=== PATIENT | male | born 1980 | race Caucasian/White ===

== ENCOUNTER 2022-11-18 09:27 | Observation (INO) ==
--- NOTE | 2022-10-31 09:57 | History & Physical Report ---
Date of Service October 31, 2022 date of surgery: 11/18/22 Procedure: Right Knee unicompartment replacement Surgeon: Markell Arzate Assessment & Plan (1) Arthritis of right knee: Plan: Patient presented for preop evaluation prior to his right knee surgery at this point time is failed conservative measures including corticosteroid injections, viscosupplementation and oral anti-inflammatories without relief. Imaging reviewed which shows advanced generative changes of the medial compartment, further care was discussed with Dr. Arzate and he is like to proceed with surgical invention. Plan will be right knee medial compartment unicompartmental knee replacement. Placed on aspirin 81 mg twice a day for 1 month postop he otherwise has no other questions or concerns The risks and benefits have been discussed including, but not limited to, risk of infection, nerve injury, stiffness, loss of motion, failure to improve, etc. Reasonable outcomes and options of treatment were discussed. An explanation of appropriate alternatives to the procedure that may be advantageous were discussed and their risks and benefits, as well as the risks and benefits of not proceeding with treatment. I offered to answer any additional inquiries concerning the treatment involved. All the patient's questions were answered. The patient is agreeable, understanding of the treatment plan and alternatives, and wishes to proceed with the treatment plan. History of Present Illness Chief Complaint: Right knee pain Primary Care Provider: Geovany Hill MD Jone is a pleasant 42-year-old male who presented for preop evaluation prior to his right knee unicompartmental medial compartment knee replacement. He states he been pain in this knee for many years now which is gradually worsened, he has failed previous physical therapy, cortisone injections, viscosupplementation as well as anti-inflammatories. He states he did have previous meniscus surgery several years ago. At this point time is failed conservative measures and would like to proceed with surgical invention. X-rays and MRI showed DJD of the medial compartment otherwise well-maintained lateral compartment. Discussed further treatment options and like to proceed with surgical invention. Allergies Allergy/AdvReac Type Severity Reaction Status Date / Time levofloxacin [From Levaquin] Allergy Intermediate "felt Verified 10/29/22 15:52 extremely high" hydrocodone [From Vicodin] AdvReac Intermediate Joint Pain Verified 10/29/22 15:52 Home Medications Medication Instructions Recorded Confirmed Type No Known Home Medications 10/29/22 10/29/22 History Past Med/Surg History Medical History Depression GERD (gastroesophageal reflux disease) History of COVID-19 05/2021--mild symptoms, still having issues with smell PTSD (post-traumatic stress disorder) Tinnitus Surgical History H/O knee surgery x 3 on right knee History of arthroscopy of knee left History of wisdom tooth extraction Family History Father Myocardial infarction Other No family history of adverse response to anesthesia Social History Smoking Status: Current every day smoker Cigarettes Per Day: 1 pack a week (advised on policy); Second Hand Exposure: No; Do You Dip or Chew Tobacco: No; Tobacco Cessation Education Requested by Patient: No Hx Alcohol Use: Yes Hx Substance Use: No Preferred Language: [place] Communication Ability: Effective Laundry Tech Required: No Beliefs That Will Affect Care: None Current Living Situation: Significant Other Other Information That Helps Us Care for You: No Feels Safe at Home: Yes Safety Concerns: Feels Safe At This Time Assistive Devices: Glasses Review of Systems Review of Systems: All systems reviewed & are unremarkable except as noted in HPI & below Constitutional: no fever, no chills and no sweats Respiratory: no cough and no dyspnea Cardiovascular: no chest pain, no dyspnea and no orthopnea Gastrointestinal: no abdominal pain, no nausea and no vomiting Musculoskeletal: as per Subjective / HPI Physical Exam Physical Exam: HT: 5ft 7in WT: 102kg Constitutional: WD/WN, vitals as above no acute distress Respiratory: normal respiratory effort, lungs clear to auscultation no re spiratory distress, no labored breathing and does not use accessory muscles Cardiovascular: RRR, no murmur, no edema Gastrointestinal (Abdomen): normal bowel sounds, soft, nontender, no hepatosplenomegaly Musculoskeletal: Knee: + knee abnormal to inspection (Right Knee: ), + effusion (+1 effusion), + surgical incision (well healed portals), + limited ROM of knee (ROM 0/3/110), + knee ROM with crepitation, + joint line tenderness (medial joint line) and + Jil's sign positive; no deformity, no skin erythema, no ecchymosis, no valgus laxity, no varus laxity, anterior drawer test negative, Justo's sign negative and pivot shift test negative Results & Data Results & Data Diagnostic Findings X-rays and MRI reviewed which show moderate to severe DJD of the medial compartment with joint space narrowing osteophyte formation subchondral sclerosis. No acute findings noted well-maintained lateral compartment
--- NOTE | 2022-11-03 13:56 | Anesthesiology Consultation ---
Date of Service November 03, 2022 Assessment & Plan (1) Encounter for pre-operative examination: - awaiting PCP clearance. - Case discussed in detail with Dr. Angulo including reflux and dyspnea with exertion. He advised patient to have PCP pre-op evaluation and clearance prior to surgery. Optimization form completed. Pt and surgeon's office made aware. - Outpatient joint assessment: Patient is currently scheduled for inpatient pathway. Further assessment/determination is pending PCP clearance. Chart Review Chart Review: Pending: Refer to Additional Notes / Consult section and Patient seen in Pre Admission Testing Teaching & Discussion Pre-Anesthesia Teaching/Discussion Notes: Instructed NPO after midnight before surgery, except medications with 15 cc of water. Medication instructions provided according to the PAT guidelines. History Surgery Operation Date: 11/18/22 14:00 Proposed Procedures p Right Total Knee Arthroplasty Medial Comparment - Markell Arzate DO Height/Weight Height: 5 ft 7 in Weight: 102.058 kg Allergies Allergy/AdvReac Type Severity Reaction Status Date / Time hydrocodone [From Vicodin] AdvReac Intermediate Joint Pain Verified 10/29/22 15:52 levofloxacin [From Levaquin] AdvReac Intermediate "Extremely Verified 10/31/22 14:57 high" feeling percocet Allergy Intermediate nausea and Uncoded 11/03/22 14:02 vomiting Medications Home Medications Medication Instructions Recorded Confirmed Last Taken No Known Home Medications 10/29/22 10/29/22 Unknown Past Medical History Medical History (Updated 11/03/22 @ 14:11 by Margo Myles PA-C) Depression GERD (gastroesophageal reflux disease) nocturnal symptoms: wakes with sensation of heartburn History of COVID-19 2020- mild symptoms > resolved except residual smell dysfunction History of pleural effusion 2019 Obesity PTSD (post-traumatic stress disorder) Tinnitus Patient denies h/o stroke, seizures, heart attack, heart failure, DM, HTN, blood clots or blood transfusions. Exercise / Class Metabolic Activity II 4-5 Yardwork/Stairs/Walk up hill (occasional shortness of breath with usual activities including 1 FOS ongoing x 1 yr; denies change or worsening, denies chest discomfort) Past Family History Family History Father Myocardial infarction Other No family history of adverse response to anesthesia Past Surgical History Surgical History H/O knee surgery Right x3 History of arthroscopy of knee Left History of wisdom tooth extraction Past Anesthesia History No Hx of Anesthesia Complications and No Family Hx of Anesthesia Complications History of PONV No Hx of Motion Sickness and History of PONV (with Percocet) Social History Smoking Status: Current every day smoker tobacco type: cigarettes Smoking cigarettes per day: 1 pack a week (advised on policy) Do You Dip or Chew Tobacco: No Hx Alcohol Use: Yes alcohol intake frequency: a few times a week Hx Substance Use: No substance use type: does not use Review of Systems Snoring, denies witnessed apneas. Patient denies chest pain, fever, chills, cough, wheezing, or palpitations. Physical Exam Vital Signs Vitals BP 128/86 P 74 SP02 98% on RA RESP 18 Physical Full cervical extension range of motion without pain TMD 3.5 finger breadths Mallampati Score 2 Dentition: several chipped teeth; denies caps/crowns, implants or bridges Lungs: normal respiratory effort. Good air movement, clear throughout to auscultation, no adventitious breath sounds Cardiac: regular rate and rhythm, no murmurs noted Carotid arteries: negative bruit bilat Lab Results Anesthesia Preop Results Results Anesthesia Widget: WBC 10.78 K/ul (4.8-10.8) 11/03/22 Hgb 15.7 g/dl (14.0-18.0) 11/03/22 Hct 45.1 % (42.0-52.0) 11/03/22 Plt 197 K/uL (130-400) 11/03/22 Na 139 mmol/L (136-145) 11/03/22 K 4.1 mmol/L (3.5-5.1) 11/03/22 Cl 105 mmol/L (98-107) 11/03/22 CO2 29 mmol/L (21-32) 11/03/22 BUN 10 mg/dl (6-23) 11/03/22 Creat 0.91 mg/dl (0.6-1.4) 11/03/22 Glucose Level 95 mg/dl (70-99(Fasting)) 11/03/22 PT 10.9 Seconds (9.0-12.0) 11/03/22 PTT 27.0 Seconds (21.0-31.0) 11/03/22 INR 1.0 (0.9-1.1) 11/03/22 Urine Color Yellow 11/03/22 Urine Appearance Clear (Clear) 11/03/22 Urine pH 7.5 (4.5-7.5) 11/03/22 Urine Specific [place] 1.023 (1.000-1.030) 11/03/22 Urine Protein Negative (Negative) 11/03/22 Urine Glucose (UA) Negative (Negative) 11/03/22 Urine Ketones Negative (Negative) 11/03/22 Urine Blood Negative (Negative) 11/03/22 Urine Nitrite Negative (Negative) 11/03/22 Urine Bilirubin Negative (Negative) 11/03/22 Urine Urobilinogen Negative (Negative) 11/03/22 Urine Leukocyte Esterase Negative (Negative) 11/03/22 Blood Type B Positive 11/03/22 Antibody Screen NEGATIVE 11/03/22 Testing Electrocardiogram Date: 11/03/22 NSR, rate 67 bpm Chest X-Ray Date: 11/03/22 The cardiomediastinal silhouette is unremarkable. The lungs and pleural spaces are clear. There is no pneumothorax. There are chronic/healed right-sided rib fractures IMPRESSION: No active disease in the chest. COVID-19 Risk Screen Screening Information COVID-19 Screen Date: 11/03/22 Exposure 21 Days Family/Household +COVID Last 21 Days: No Exposure 10 Days Any COVID Exposure Last 10 Days: No Symptoms Last 10 Days Experienced COVID Sx Last 10 Days: No + COVID 0-90 Days COVID + in Last 0-90 Days: No
[~2022-11-18 09:27] MED LIST: CeleBREX 200 MG CAP PO SCH; FAMOTIDINE 20 MG TAB PO SCH; GABAPENTIN 900 MG DOSE PO SCH; LIDOCAINE 2% MPF LOCAL 5 ML VIAL ONE; LR 500ML BOLUS, THEN 15ML/HR IV SCH; METOCLOPRAMIDE HCL 10 MG TABLET PO SCH; MIDAZOLAM HCL 1 MG/ML 2ML VIAL ONE; ONDANSETRON INJ 2 MG/ML 2 ML VIAL ONE; PROPOFOL IV EMULSION 10 MG/ML 20 ML VIAL IV ONE; ROPIVACAINE 0.5% 5 MG/ML 30 ML VIAL ONE; ROPIVACAINE 0.5% HCL/PF 150 MG, BUPIVACAINE 0.75% MPF 20 ML, EPINEPHrine 30MG/30ML (OR ... INSTIL SCH; TRANEXAMIC ACID 1,000 MG **IV Intra-op IV SCH; TRANEXAMIC ACID 1,000 MG **IV Pre-op IV SCH; ceFAZolin 2000MG 2,000 MG/15 ML SYR IV SCH; dexAMETHasone 4 MG TAB PO SCH
[2022-11-18] MEDS ORDERED: ORTHO JOINT ANESTHETIC ONE (11:40)
[2022-11-18] MEDS ORDERED: ATROPINE SULFATE 0.1 MG/ML 10ML SYR IV PRN (11:55)
[2022-11-18] MEDS ORDERED: KETOROLAC 30 MG/ML VIAL IV PRN (11:55)
[2022-11-18] MEDS ORDERED: ONDANSETRON INJ 2 MG/ML 2 ML VIAL IV PRN ×2 (11:55→16:37)
[2022-11-18] MEDS ORDERED: ePHEDrine sulfate 50 MG/ML AMP IV PRN (11:55)
--- NOTE | 2022-11-18 12:09 | History & Physical Bridge Note ---
Date of Service November 18, 2022 History & Physical Bridge Note I have examined the patient, reviewed the History & Physical and in the interval since the performance of the History & Physical I have noted the following changes of clinical significance: no changes noted
[2022-11-18] MEDS ORDERED: PHENYLEPHRINE HCL 10 MG/ML VIAL ONE (12:57)
--- NOTE | 2022-11-18 13:21 | Anesthesiology Progress Note ---
Date of Service November 18, 2022 Anesthesia Post Procedure Vital Signs Vital Signs: Temp Pulse Resp BP Pulse Ox O2 Del Method 11/18/22 09:42 36.7 C 71 20 163/105 H 98 Room Air Pain Intensity Right Knee: Pain Intensity: 5 Transfer of Care Handoff Completed per policy Notes Mental Status: alert / awake / arousable Patient Amnestic to Procedure: Yes Nausea / Vomiting: adequately controlled Pain: adequately controlled Airway Patency, RR, SpO2: stable & adequate BP & HR: stable & adequate Hydration State: stable & adequate Anesthetic Complications: no major complications apparent
[2022-11-18] MEDS ORDERED: MIDAZOLAM HCL 1 MG/ML 2ML VIAL ONE ×2 (14:14→14:47)
[2022-11-18] MEDS ORDERED: KETAMINE 50 MG/5 ML SYRINGE ONE (14:14)
[2022-11-18] MEDS ORDERED: fentaNYL citrate PF 100 MCG/2 ML VIAL ONE (14:14)
[2022-11-18] MEDS ORDERED: LABETALOL HCL IV 5 MG/ML 20ML IV ONE (14:25)
[2022-11-18] MEDS ORDERED: PROPOFOL IV EMULSION 10 MG/ML 20 ML VIAL IV ONE ×2 (14:26)
--- NOTE | 2022-11-18 14:49 | Operative Report ---
Post Operative Report Pre & Post Diagnosis Operation Date: 11/18/22 11:15 Pre-Op Diagnosis: Right Knee Osteoarthritis Post-Op Diagnosis: Right Knee Osteoarthritis I identified the patient and participated in the time-out.: Yes Procedure Operation Date: 11/18/22 11:15 Actual Procedures p Right Total Knee Arthroplasty Medial Compartment(Right) utilizing [employer] unicompartmental medial compartment knee arthroplasty size femur 7 tibia 7 poly 8- Markell Arzate DO Surgeon Markell Arzate DO Show Host Or Hostess Franklin EARL Estimated Blood Loss 5 Findings Consistent with Post-Op Diagnosis Patient presents with medial compartment DJD intact anterior posterior crucial ligaments lateral compartment pristine patellofemoral compartment otherwise pristine with [id number] changes medial compartment eburnated bone osteophytes Specimens Bone card Drains Medium bore Hemovac Anesthesia Type MAC Spinal Regional Complications none Disposition Accompanied Patient To Recovery: No Disposition: Recovery Room Indications Patient presents with medial compartment DJD failing attempted conservative management with previous arthroscopy corticosteroid injection patient presents for unicompartmental knee arthroplasty after failed attempted conservative management above intraoperative findings were noted Description of Procedure After initiation of regional anesthesia the right lower extremity subcu prepped draped usual fashion for surgery this type and abductor block also been placed the knee having been properly prepped and draped anterior midline incision was made dissection was carried down to the extensor mechanism medial parapatellar incision was made to the the VMO and to the superior pole of the patella the patella was mildly subluxed lateralward the medial compartment was evaluated the anterior third of the meniscus medial meniscus was excised with special attention protect the lateral meniscal attachments very small portion of the fat pad was excised to provide exposure of a very minimal medial takedown of periosteum to the region of the medial collateral ligament was performed the proximal tibial osteotomy guide was placed and a osteotomy cut was made with the knee in flexion utilizing a sagittal saw on a regular set reciprocating saw special test was paid to protect neurovascular structures as well as anterior posterior cruciate ligaments at all times osteophytes had been removed the distal femoral extension gaps and flexion gaps were checked and noted to be 7 and 9 respectively the within 2 mm subsequently the distal femoral size 7 was placed the distal femoral block and osteotomy cut was made utilizing a standard guide with the knee in flexion the block and then placed the appropriate drill tunnels were placed for the post distal femoral cuts and chamfer cuts were made the wound was irrigated cups muscle sterile saline solution the tibia was sized to a size 7 a the keel was impacted into the tibial bone special attention was paid to protect neurovascular structures at all times the trials were placed a size 8 gave excellent stability without overcorrection the components were subsequently cemented in the following order tibia femur a 8 mm patient was placed the deep wound was irrigated Betadine soak was performed the wound was closed with #1 Vicryl subcu 0 Vicryl skin with running V lock a sterile compressive dressing was placed please note Franklin EARL was necessary for prepping draping retraction exposure and was necessary for the case I attest to the content of the Intraoperative Record and any orders documented therein. Any exceptions are noted below.
[2022-11-18] MEDS: HYDROmorphone INJ 1 MG/ML SYRINGE IV PRN ×4 (15:41→15:56)
--- NOTE | 2022-11-18 16:02 | XRay Report ---
XR knee RT 1 or 2V routine HISTORY: 42 years-old Male Surgical Post Op hemiarthroplasty of the right knee COMPARISON: Right knee MRI 09/18/2022 TECHNIQUE: 2 views of the right knee FINDINGS: Status post hemiarthroplasty changes of the medial compartment. Minimal marginal spurring of the tibi al tuberosity, medial and patellofemoral compartments. Expected postoperative soft tissue swelling an d deep tissue air. No acute fracture or unexpected opaque foreign body. IMPRESSION: Medial compartment hemiarthroplasty with expected postoperative changes. ACT 112: Negative or not required by law. The above report was generated using voice recognition software. It may contain grammatical, syntax o r spelling errors. Electronically signed by: Tyron Lloyd M.D. 11/18/2022 4:00 PM
[2022-11-18] MEDS ORDERED: bisacodyL 10 MG SUPP PR PRN (16:37)
[2022-11-18] MEDS ORDERED: SODIUM CHLORIDE 0.9% 1000ML 1,000 ML IV SCH (16:37)
[2022-11-18] MEDS ORDERED: diphenhydrAMINE 50 MG/ML VIAL IV PRN (16:37)
[2022-11-18] MEDS ORDERED: MAGNESIUM HYDROXIDE SUSP 30 ML UDC PO PRN (16:37)
[2022-11-18] MEDS ORDERED: HYDROmorphone INJ 0.5 MG/0.5 ML SYR IV PRN (16:37)
[2022-11-18] MEDS ORDERED: NALOXONE HCL 0.4 MG/1 ML VIAL/CARP IV PRN (16:37)
--- NOTE | 2022-11-18 17:33 | Anesthesiology Progress Note ---
Date of Service November 18, 2022 Anesthesia Post Procedure Vital Signs Vital Signs: Temp Pulse Pulse Resp BP Pulse Ox O2 Del Method 11/18/22 17:05 36.5 C 85 16 117/81 94 Room Air 11/18/22 16:55 Room Air 11/18/22 16:37 36.4 C L 72 16 134/88 96 Room Air 11/18/22 16:10 36.3 C L 87 13 98/80 L 94 Room Air 11/18/22 16:00 82 12 115/81 94 Room Air 11/18/22 15:50 87 17 129/86 94 Room Air 11/18/22 15:40 84 14 122/94 94 Room Air 11/18/22 15:30 86 13 137/88 99 Oxymask 11/18/22 15:23 36.4 C L 84 13 133/91 100 Oxymask 11/18/22 09:42 36.7 C 71 20 163/105 H 98 Room Air O2 Flow Rate 11/18/22 17:05 11/18/22 16:55 11/18/22 16:37 11/18/22 16:10 11/18/22 16:00 11/18/22 15:50 11/18/22 15:40 11/18/22 15:30 5 11/18/22 15:23 9 11/18/22 09:42 Pain Intensity Right Knee: Pain Intensity: 4 Transfer of Care Handoff Completed per policy Notes Mental Status: alert / awake / arousable Patient Amnestic to Procedure: Yes Nausea / Vomiting: adequately controlled Pain: adequately controlled Airway Patency, RR, SpO2: stable & adequate BP & HR: stable & adequate Hydration State: stable & adequate Neuraxial Anesthesia: was administered and sensory block is resolving Anesthetic Complications: no major complications apparent
[2022-11-18] MEDS: TAPENTADOL HCL 50 MG TAB PO PRN (19:25)
[2022-11-18] MEDS: ceFAZolin 2000MG 2,000 MG/15 ML SYR IV SCH (19:26)
[2022-11-18] MEDS ORDERED: SENNA 8.6 MG TAB PO SCH (21:00)
[2022-11-18] MEDS: DOCUSATE SODIUM 100 MG CAP PO SCH (21:10)
[2022-11-18] MEDS: ASPIRIN 81 MG ECTAB PO SCH (21:10)
[2022-11-18] MEDS: KETOROLAC 30 MG/ML VIAL IV SCH (21:11)
[2022-11-18] MEDS: ACETAMINOPHEN 500 MG TAB PO SCH (21:11)
[2022-11-19] MEDS: TAPENTADOL HCL 50 MG TAB PO PRN ×3 (00:09→14:07)
[2022-11-19] MEDS: ceFAZolin 2000MG 2,000 MG/15 ML SYR IV SCH (03:43)
[2022-11-19] MEDS: KETOROLAC 30 MG/ML VIAL IV SCH ×2 (03:44→10:05)
[2022-11-19] MEDS: ACETAMINOPHEN 500 MG TAB PO SCH ×2 (05:59→14:07)
[2022-11-19 06:56] LABS: Hematocrit (blood only) 40.4 % (42.0-52.0); Hemoglobin 14.1 g/dl (14.0-18.0); Mean Corpuscular Hemoglobin 30.3 pg (25.0-34.0); Mean Corpuscular Hgb Conc 34.9 g/dL (32.0-36.0); Mean Corpuscular Volume 86.9 fL (80.0-100.0); Mean Platelet Volume 11.8 fL (9.4-12.4); Platelet Count 240 K/uL (130-400); RDW Coefficient of Variation 12.5 % (11.5-14.5); RDW Standard Deviation 39.5 fL (36.4-46.3); Red Blood Count 4.65 M/uL (4.70-6.10); White Blood Count 24.81 K/ul (4.8-10.8)
[2022-11-19 07:18] LABS: BUN Creatinine Ratio 11.6 (10-20); Calcium 9.1 mg/dl (8.6-10.3); Potassium 3.9 mmol/L (3.5-5.1)
[2022-11-19] MEDS: DOCUSATE SODIUM 100 MG CAP PO SCH (08:24)
[2022-11-19] MEDS: ASPIRIN 81 MG ECTAB PO SCH (08:24)
--- NOTE | 2022-11-19 08:24 | Orthopedic Progress Note ---
Date of Service November 19, 2022 Assessment & Plan (1) Arthritis of right knee: Plan: Postop day 1 status post right Uni TKA PT/OT protocols. Weightbearing as tolerated. DVT prophylaxis-aspirin p.o. twice daily, SCDs, AKUA lim. Pain management as written. Patient had history of hydrocodone and oxycodone intolerances however patient states that he is able to tolerate oxycodone if needed. [facility] his [facility] and we will adjust accordingly as needed. Leukocytosis-patient asymptomatic at this time. Likely secondary to preoperative steroids and or surgical stress. DC planning-patient is planning for outpatient PT upon discharge. Admission and Anticipated Discharge Date Admission Date: November 18, 2022 Subjective Postop day 1 Patient sitting up in chair at the bedside. No complaints this morning. Pain is controlled. States he ambulated the hallway last night without difficulty. Denies shortness of breath, chest pain, lightheadedness. Physical Exam Physical Exam: Dressings are clean, dry, and intact. Calves are soft nontender. Neurovascular intact. Toes are mobile. He has good dorsiflexion and plantarflexion of the right foot. Results & Data Vital Signs (Past 12 Hours) Vital Signs Temp Pulse Resp BP BP Pulse Ox O2 Del Method 11/19/22 07:26 36.5 C 77 16 129/77 98 Room Air 11/19/22 03:41 36.7 C 86 16 125/71 97 Room Air 11/18/22 22:05 36.6 C 94 H 16 152/80 H 98 Room Air Laboratory Results Laboratory Results WBC 24.81 K/ul (4.8-10.8) H 11/19/22 06:05 RBC 4.65 M/uL (4.70-6.10) L 11/19/22 06:05 Hgb 14.1 g/dl (14.0-18.0) 11/19/22 06:05 Hct 40.4 % (42.0-52.0) L 11/19/22 06:05 MCV 86.9 fL (80.0-100.0) 11/19/22 06:05 MCH 30.3 pg (25.0-34.0) 11/19/22 06:05 MCHC 34.9 g/dL (32.0-36.0) 11/19/22 06:05 RDW Std Deviation 39.5 fL (36.4-46.3) 11/19/22 06:05 RDW Coeff of Lucy 12.5 % (11.5-14.5) 11/19/22 06:05 Plt Count 240 K/uL (130-400) 11/19/22 06:05 MPV 11.8 fL (9.4-12.4) 11/19/22 06:05 Sodium 138 mmol/L (136-145) 11/19/22 06:05 Potassium 3.9 mmol/L (3.5-5.1) 11/19/22 06:05 Chloride 105 mmol/L (98-107) 11/19/22 06:05 Carbon Dioxide 27 mmol/L (21-32) 11/19/22 06:05 Anion Gap 6 (3-11) 11/19/22 06:05 BUN 10 mg/dl (6-23) 11/19/22 06:05 Creatinine 0.86 mg/dl (0.6-1.4) 11/19/22 06:05 Est Cr Clr Drug Dosing 128.0 ml/min 11/19/22 06:05 Est GFR ( Amer) 124.0 ml/min 11/19/22 06:05 Est GFR (Non-Af Amer) 107.0 ml/min 11/19/22 06:05 BUN/Creatinine Ratio 11.6 (10-20) 11/19/22 06:05 Glucose 138 mg/dl (70-99(Fasting)) H 11/19/22 06:05 Calcium 9.1 mg/dl (8.6-10.3) 11/19/22 06:05 SARS-CoV-2, RNA, NAAT NEGATIVE (NEGATIVE) 11/18/22 09:30 Impressions Knee X-Ray 11/18/22 15:43 XR knee RT 1 or 2V routine HISTORY: 42 years-old Male Surgical Post Op hemiarthroplasty of the right knee COMPARISON: Right knee MRI 09/18/2022 TECHNIQUE: 2 views of the right knee FINDINGS: Status post hemiarthroplasty changes of the medial compartment. Minimal marginal spurring of the tibial tuberosity, medial and patellofemoral compartments. Expected postoperative soft tissue swelling and deep tissue air. No acute fracture or unexpected opaque foreign body. IMPRESSION: Medial compartment hemiarthroplasty with expected postoperative changes. ACT 112: Negative or not required by law. The above report was generated using voice recognition software. It may contain grammatical, syntax or spelling errors. Electronically signed by: Tyron Lloyd M.D. 11/18/2022 4:00 PM
[2022-11-19] MEDS ORDERED: MULTIVITAMIN TAB PO SCH (09:00)
--- NOTE | 2022-11-22 12:17 | Discharge Summary ---
Date of Service November 22, 2022 Admission HPI Per Admitting Provider Williams is a pleasant 42-year-old male who presented for preop evaluation prior to his right knee unicompartmental medial compartment knee replacement. He states he been pain in this knee for many years now which is gradually worsened, he has failed previous physical therapy, cortisone injections, viscosupplementation as well as anti-inflammatories. He states he did have previous meniscus surgery several years ago. At this point time is failed conservative measures and would like to proceed with surgical invention. X-rays and MRI showed DJD of the medial compartment otherwise well-maintained lateral compartment. Discussed further treatment options and like to proceed with surgical invention. Admission Exam Per Admitting Provider Physical Exam: HT: 5ft 7in WT: 102kg Constitutional: WD/WN, vitals as above no acute distress Respiratory: normal respiratory effort, lungs clear to auscultation no respiratory distress, no labored breathing and does not use accessory muscles Cardiovascular: RRR, no murmur, no edema Gastrointestinal (Abdomen): normal bowel sounds, soft, nontender, no hepatosplenomegaly Musculoskeletal: Knee: + knee abnormal to inspection (Right Knee: ), + effusion (+1 effusion), + surgical incision (well healed portals), + limited ROM of knee (ROM 0/3/110), + knee ROM with crepitation, + joint line tenderness (m edial joint line) and + Jil's sign positive; no deformity, no skin erythema, no ecchymosis, no valgus laxity, no varus laxity, anterior drawer test negative, Justo's sign negative and pivot shift test negative Principal Diagnosis Right knee osteoarthritis Discharge Data Allergies Allergy/AdvReac Type Severity Reaction Status Date / Time hydrocodone [From Vicodin] AdvReac Intermediate Joint Pain Verified 10/29/22 15:52 levofloxacin [From Levaquin] AdvReac Intermediate "Extremely Verified 10/31/22 14:57 high" feeling oxycodone AdvReac Intermediate nausea/vomiting Verified 11/18/22 09:42 with Percocet Procedures Performed Operation Date: 11/18/22 11:15 Actual Procedures p Right Total Knee Arthroplasty Medial Compartment(Right) - Markell Arzate DO Ordered Studies 11/18/22 12:00 US - OR guided needle placemen Routine Hospital Course (1) Arthritis of right knee: Patient:WILLIAMS SRINIVASAN Admit Date:11/18/22 MR#:[id number] Att Phy:Markell Arzate D.O. Acct ID:[id number] Sasha Phy:Geovany Squires MD Date:1980 Fam Phy: Age:42 Location:3E Sex:M Room/Bed:[facility] cc: ~ *NOTICE TO RECEIVING LIBERTARIAN/AGENCY This information is strictly Confidential and protected under [place] law. [place] law prohibits you from making any further disclosure of this information unless further disclosure is expressly permitted by the written consent of the person to whom it pertains or is authorized by law. A general authorization for the release of medical or other information is not sufficient for this purpose. Hospital accepts no responsibility if the information is made available to any other person, INCLUDING THE PATIENT. Date of Service November 19, 2022 Assessment & Plan (1) Arthritis of right knee: Plan: Postop day 1 status post right Uni TKA PT/OT protocols. Weightbearing as tolerated. DVT prophylaxis-aspirin p.o. twice daily, SCDs, AKUA lim. Pain management as written. Patient had history of hydrocodone and oxycodone intolerances however patient states that he is able to tolerate oxycodone if needed. [facility] his [facility] and we will adjust accordingly as needed. Leukocytosis-patient asymptomatic at this time. Likely secondary to preoperative steroids and or surgical stress. DC planning-patient is planning for outpatient PT upon discharge. Admission and Anticipated Discharge Date Admission Date: November 18, 2022 Subjective Postop day 1 Patient sitting up in chair at the bedside. No complaints this morning. Pain is controlled. States he ambulated the hallway last night without difficulty. Denies shortness of breath, chest pain, lightheadedness. Physical Exam Physical Exam: Dressings are clean, dry, and intact. Calves are soft nontender. Neurovascular intact. Toes are mobile. He has good dorsiflexion and plantarflexion of the right foot. Results & Data Vital Signs (Past 12 Hours) Vital Signs Temp Pulse Resp BP BP Pulse Ox O2 Del Method 11/19/22 07:26 36.5 C 77 16 129/77 98 Room Air 11/19/22 03:41 36.7 C 86 16 125/71 97 Room Air 11/18/22 22:05 36.6 C 94 H 16 152/80 H 98 Room Air Laboratory Results Laboratory Results WBC 24.81 K/ul (4.8-10.8) H 11/19/22 06:05 RBC 4.65 M/uL (4.70-6.10) L 11/19/22 06:05 Hgb 14.1 g/dl (14.0-18.0) 11/19/22 06:05 Hct 40.4 % (42.0-52.0) L 11/19/22 06:05 MCV 86.9 fL (80.0-100.0) 11/19/22 06:05 MCH 30.3 pg (25.0-34.0) 11/19/22 06:05 MCHC 34.9 g/dL (32.0-36.0) 11/19/22 06:05 RDW Std Deviation 39.5 fL (36.4-46.3) 11/19/22 06:05 RDW Coeff of Lucy 12.5 % (11.5-14.5) 11/19/22 06:05 Plt Count 240 K/uL (130-400) 11/19/22 06:05 MPV 11.8 fL (9.4-12.4) 11/19/22 06:05 Sodium 138 mmol/L (136-145) 11/19/22 06:05 Potassium 3.9 mmol/L (3.5-5.1) 11/19/22 06:05 Chloride 105 mmol/L (98-107) 11/19/22 06:05 Carbon Dioxide 27 mmol/L (21-32) 11/19/22 06:05 Anion Gap 6 (3-11) 11/19/22 06:05 BUN 10 mg/dl (6-23) 11/19/22 06:05 Creatinine 0.86 mg/dl (0.6-1.4) 11/19/22 06:05 Est Cr Clr Drug Dosing 128.0 ml/min 11/19/22 06:05 Est GFR ( Amer) 124.0 ml/min 11/19/22 06:05 Est GFR (Non-Af Amer) 107.0 ml/min 11/19/22 06:05 BUN/Creatinine Ratio 11.6 (10-20) 11/19/22 06:05 Glucose 138 mg/dl (70-99(Fasting)) H 11/19/22 06:05 Calcium 9.1 mg/dl (8.6-10.3) 11/19/22 06:05 SARS-CoV-2, RNA, NAAT NEGATIVE (NEGATIVE) 11/18/22 09:30 Impressions Knee X-Ray 11/18/22 15:43 XR knee RT 1 or 2V routine HISTORY: 42 years-old Male Surgical Post Op hemiarthroplasty of the right knee COMPARISON: Right knee MRI 09/18/2022 TECHNIQUE: 2 views of the right knee FINDINGS: Status post hemiarthroplasty changes of the medial compartment. Minimal marginal spurring of the tibial tuberosity, medial and patellofemoral compartments. Expected postoperative soft tissue swelling and deep tissue air. No acute fracture or unexpected opaque foreign body. IMPRESSION: Medial compartment hemiarthroplasty with expected postoperative changes. ACT 112: Negative or not required by law. The above report was generated using voice recognition software. It may contain grammatical, syntax or spelling errors. Electronically signed by: Tyron Lloyd M.D. 11/18/2022 4:00 PM Signed By: <Electronically signed by Leobardo Whyte MD> 11/19/22 1235 <Electronically signed by Franklin Jay PA-C> 11/19/22 0823 Created:11/19/22 0821 Total Time Total Time Spent Total Time Spent (In Minutes): 5 Discharge Plan Discharge Items Patient Disposition: Home - Self-Care Reason For Visit: DJD RIGHT KNEE Discharge Diagnosis: Right Knee Osteoarthritis Activity: Per Instructions section Weightbearing: Right weightbearing Weightbearing Comment: as tolerated with walker Non-emergency contact: Surgeon Call non-emergency contact if: you have any medication questions, your pain is not controlled, your temperature is above 101.5, your wound has increased redness and your wound has increased drainage Follow-up/Referrals: Markell Arzate DO [Surgeon] - (Follow up with Dr Arzate or his PA in 2 weeks from the day of your surgery for your first post operative visit.) Geovany Squires MD [Primary Care Provider] - Diet: Regular Addtl Attending Provider Instructions: ACTIVITY RECOMMENDATIONS: SELF CARE INSTRUCTIONS AFTER TOTAL KNEE REPLACEMENT A. You may need to continue a physical therapy program after discharge from the hospital. There are several options available to you. Your doctor will assist you in selecting the best one for you. 1. An out-patient facility 2 to 3 times a week for therapy or home therapy. 2. Continue working on all exercises taught to you in the hospital. Your goals should be to increase bending of your knee to 90 degrees and beyond and to fully straighten your knee. B. You may progress at your own pace from walking with a walker or crutches to a cane; then to no assistive devices. C. Make walking a part of your daily routine. Be up as much as comfortable with rest periods throughout the day. Rest with leg elevation is very important. Use the ice wrap frequently for the first 3-4 weeks. D. There are no restrictions on activities. You may ride in a car, shop, participate in bullet lubricating machine operator and all social activities. E. Wear the long elastic stockings (AKUA hose) 20 hours a day for 2 weeks after surgery. They can be removed several times a day for laundering and for a bath. F. You may shower, no tub baths until cleared by your doctor. SPECIAL CARE INSTRUCTIONS: VERY IMPORTANT TO READ AND REVIEW A. There are a few signs you need to watch for after you are home. Call [facility] if you notice any of the followin. Increased severe knee pain. Some pain is expected especially when you exercise. 2. Increased swelling in your leg or knee; pain or swelling of the calf muscle in either lower leg. 3. Any fluid drainage from the incision. 4. Shortness of breath or chest pain. B. Please call [facility] at if you have any concerns or questions about your operation or recovery. The doctor or his nurse will return your call promptly. C. You must take antibiotics before dental work, bladder, bowel or other surgery. Your doctor will provide you with a permanent care to carry describing this precaution. IMPORTANT: * REMEMBER TO TAKE ASPIRIN, 81 MG, TWICE DAILY FOR 4 WEEKS UNLESS OTHERWISE DIRECTED. THIS IS YOUR BLOOD THINNER. * HIGH RISK PATIENTS MAY BE PRESCRIBED A STRONGER BLOOD THINNER. THIS WILL BE PROVIDED AT DISCHARGE. * CALL IF INCREASED PAIN, REDNESS, DRAINAGE OR FEVER GREATER THAT 101. * WEAR AKUA HOSE 20 HOURS PER DAY FOR 2 WEEKS. * Prevena- This is a large suction dressing covering your incision. This will help pull any excess drainage from the wound and allow your incision to heal properly. You may shower with this if you can keep the unit outside of the shower. If any bleeding or leakage is noted please call your doctor's office. This will remain on your incision for 7 days and then should be removed. This can be done yourself or by the home nursing staff if applicable. The entire unit is disposable once removed. Once removed, keep incision clean and dry. If redness or drainage is noted, please call your surgeon. . ONCE THE PREVENA IS REMOVED, PLEASE WOUND INSTRUCTIONS BELOW. * DERMABOND Prineo- This is a mesh tape dressing that is covered with glue. It should remain in place until the incision is properly healed, usually 10-14 days. This dressing is designed to naturally slough off. You may trim the excess mesh tape as it peels off. Incision may be briefly wet in a shower. Dry immediately by blotting with a clean, dry towel. Do not bath or swim until instructed by your doctor. Do not scratch, rub, or pick at the dressing. Do not apply any topical ointments or lotions until dressing is completely removed and/or instructed by your doctor. There may be a small piece of suture material at one end of your incision. Do not pull or trim this. If it is bothersome or catching on clothing, you may cover it with a band-aid. FOLLOW UP VISIT: If appointment is not already scheduled: Please call [facility] to make a follow-up appointment for 2 weeks after your surgery at . Stand-Alone Forms: [employer], Pain - Opioid Pain Management Medications and DC Order Prescriptions: No Action No Known Home Medications Discharge Orders: Discharge Order (Routine); Ordered 11/19/22 Ordered By: Franklin Rodriguez/Other Patient Handouts: DVT Post Op Prevention Admission Data Admit Date/Time: 11/18/22 15:43 Attending Provider: Markell Arzate Admit Provider: Markell Arzate Primary Care Provider: Geovany Squires Other Interventions: Discharge Summary Assessment (RN) Last Done: 11/19/22 14:15
== END 2022-11-19 14:56 | disposition home or self-care (01) ==
LOC: 3E 09:27 → ASU 09:27